=== PATIENT | female | born 1930 | race Caucasian/White ===

== ENCOUNTER 2018-06-05 09:32 | Emergency (ER) | payer MEDICARE ==
[~2018-06-05] VITALS: Ht 157.5 cm; Wt 65.8 kg
[2018-06-05] MEDS ORDERED: LEVOTHYROXINE100 MCG PO (09:43)
[2018-06-05] MEDS ORDERED: LEVETIRACETAM1000 MG PO (09:44)
== END 2018-06-05 12:00 | disposition home or self-care (01) ==
LOC: ED 09:32
DX: R56.9 Unspecified convulsions (principal); Z79.899 Other long term (current) drug therapy
CPT/HCPCS: 80053; 82542; 85025; 99284